=== PATIENT | male | born 1970 | race Caucasian/White ===

== ENCOUNTER 2016-11-16 14:39 | Emergency (ER) | payer MEDICAID ==
[~2016-11-16] VITALS: Ht 175.3 cm; Wt 79.4 kg
--- NOTE | 2016-11-16 15:16 | Urgent Treatment Center Report ---
See Addendum History of Present Issue Date/Time Seen by Provider 11/16/16 1516 Visit Reason Pt arrived:Walked Presenting Problem:PT STATES SPOT ON RIGHT LOWER LEG THAT HE SUSPECTS IS A SPIDER BITE. REDNESS NOTED. Location if Accident: Onset of symptoms date/time:/ or onset unknown for:MEDICAL HX UNKNOWN Have you (or family members/close friends) recently traveled outside the [place]? N If Yes, where/when: Have you had exposure to infectious disease within the past month? TB? Other? Specify: c/o "spider bite" right calf. First noticed "as a small red dot" 2-3 days ago. Each day, more red, more hot, more tender, more swollen. thinks pt has felt feverish but pt denies and no one has checked. No nausea. No treatment other than ibuprofen and wound cleanser. Scab in center. Thick yellow drainage this morning. No one w/ similiar symptoms. Source patient Exam Limitations no limitations ALLERGIES Coded Allergies: No Known Allergies (11/16/16) History Medical History General CAD? No Angina: No KS: No Hypertension? No Hyperlipidemia? No CHF? No DVT? No PE? No COPD? No Asthma? No Anemia? No GERD? No Gastric ulcers? No GI Bleed? No Hernia? No Thyroid Problems? No Hypothyroidism? No CVA? No Seizures? No Diabetes? No Renal Insuffiency? No UTI? No Stones? No BPH? No GB Disease: No Nephritic Syndrome? No Asplenia? No Hepatitis? No Sickle Cell Disease? No Arthritis? No Migraines? No Cataracts? No Glaucoma? No MRSA? No HIV? No TB? No Anxiety? No Depression? No Cancer? No More? No Immunization HX DT/Tetanus Unknown Surgical Hx Previous Surgery?N Social History Smoking Hx Smoker: Current Every Day Smoker Tobacco: Yes Type Cigarettes Packs/day < 1 Pack Alcohol Alcohol: No Review of Systems All Other Systems Reviewed and Negative Constitutional see HPI, denies malaise Musculoskeletal see HPI, denies joint pain, denies muscle pain Skin see HPI Psychiatric/Neurological denies numbness, denies tingling Physical Exam Vital Signs Vital Signs Date Time Temp Pulse Resp B/P Pulse O2 O2 Flow FiO2 Ox Delivery Rate 11/16 1554 97.9 68 20 125/71 95 11/16 1454 97.9 68 20 125/71 95 General Appearance no apparent distress, unkept appearance Respiratory Status No: respiratory distress. Cardiovascular no peripheral edema Back gait normal Extremities normal range of motion (BLE), normal inspection (right knee), mild tenderness, swelling and erythema right lateral calf, see skin assessment Strength 5 Lower Ext (L), 5 Lower Ext (R) Neurologic alert, no motor/sensory deficits, oriented x 3 Skin 3x3cm skin abscess right lateral lower leg w/ 10x7cm surrounding erythema. Abscess firm, tender, no drainage, approx 1mm center scab Medical Decision Making LABS/Meds/Orders Pt receiving controlled substance in ED? No Results/Orders Orders Procedure Date/time Status CULTURE, WOUND 11/16 1547 Active Procedures Incision and Drainage Incision and Drainage Risks/benefits discussed with pt/guardian? Yes Problem type Abcess Location right lower leg Anesthesia None I & D Procedure Simple, betadine prep, Pus small amount (thick, white). Progress after prep, 18 guage needle used to gently remove center scab. pt felt relief after procedure. Specimen sent for culture. No packing required Departure Departure Time of Disposition 1546 Disposition DC Home or Self Care(routine) Clinical Impression Primary Impression: Abscess of right lower leg Condition STABLE Referrals NO REFERRAL I understand you do not have a primary care provider so we have provided you with a list of providers accepting patients. I would encourage you find him a new primary care provider and make an appt SENTHIL as it can take weeks to get a new patient appointment. In the meantime, follow up in the clinic or ER for new, worsening or persistent symptoms. Call [facility] at [phone] in 48-72 hours for wound culture results Patient Instructions DI for Skin Abscess Additional Instructions * Start antibiotic(s) immediately and be sure to take as ordered for the FULL length of time although you should start to see improvement over the next 24-48 hours. * Monitor closely. Outlined redness so that you can monitor easier. FU immediately for new or worsening symptoms ( including but not limited to redness , swelling, red streaking, fever, chills). * Warm compresses w/ epsom salt as discussed 15 min 3-4 times a day * never squeeze or pop these on your own. Seek immediate medical attention next time these occur. * Monitor Temp. Seek medical treatment if fever develops * Call [facility] at [phone] in 48-72 hours for wound culture results. It is VERY important you do this so that you know the type of bacterial and that you are on an appropriate antibiotic since you have no primary care provider to send results too. * ibuprofen 600-800mg every 6-8 hours as needed for pain Discharge Counseling Counseled pt/family regarding diagnosis, medications/RX, home care, follow up needs Prescriptions Current Visit Scripts SULFAMETHOXAZOLE W/TRIMETHOPRI (Bactrim Ds Tab) 1 TABLET PO BID #20 TAB at 8940
[2016-11-16] MEDS ORDERED: BACTRIM DS 8001 TA1 PO (15:51)
[2016-11-16 15:54] VITALS: BP 125/71
== END 2016-11-16 15:58 | disposition home or self-care (01) ==
LOC: UTC 14:39
PROC: 0H9KXZZ Drainage of Right Lower Leg Skin, External Approach (ICD-10-PCS; principal; 2016-11-16)
DX: L02.415 Cutaneous abscess of right lower limb (principal); B95.62 Methicillin resistant Staphylococcus aureus infection as the cause of diseases classified elsewhere; F17.210 Nicotine dependence, cigarettes, uncomplicated